=== PATIENT | male | born 1995 ===

== ENCOUNTER 2021-11-11 11:08 | Outpatient (CLI) | payer OTHER ==
[2021-11-11 12:00] VITALS: BP 121/70
--- NOTE | 2021-11-11 12:00 | SLEEP CARE CONSULTATION ---
Information from patient questionnaire entered by Viviana Boogie MA. I have reviewed and concur with the information entered by Viviana Boogie MA. This document represents the service I personally performed and the decisions made by , Susie Banda ARNP. History of Present Illness Service Date and Time: 11/11/2021 1108 Reason for Visit: New patient (ONSET 09/2019, NO PRIORS, ) Chief Complaint: reports: Unrefreshed sleep, Snoring, Excessive daytime sleepin ess, Fatigue Date of Onset: 1 YEAR Usual bedtime: 10 PM Time it takes to fall asleep: 20-30 MINUTES Snores at night: Yes Observed to quit breathing while asleep: No Sleeps alone due to snoring: No Number of times waking at night: 2 Reasons for waking at night: reports: Snoring, Other Toss, Turn, or Twitch while sleeping: Yes Recalls having dreams: No Usually gets out of bed at: 0600 Feels refreshed in the morning: No Morning headache: No Sleepy or fatigued during the day: Yes Ever fallen asleep while driving: No Takes day naps: Yes Dreams during day naps: No Prior sleep studies: No Additional HPI information: I had the pleasure of seeing SUZIE KEMP today regarding the possibility of him having a sleep disorder. His current complaints are unrefreshed sleep, excessive daytime sleepiness, fatigue and snoring. He states he snores loudly and this is keeping his girlfriend awake at night. He is also very tired throughout the day. The patient tells me that he normally goes to bed around 10 pm (weekends, midnight), and it takes him approximately 15 minutes to fall asleep. He has been told that he snores loudly and irregularly at night. He has not been observed to stop breathing in his sleep. His bed partner can still sleep in the same bed. He can recall waking up on the average of 2 times during the night. Most of the time he wakes up because of unknown reason. He has occasionally awakened for his own snoring. There is a lot of tossing and turning in his sleep. Generally there is no recollection of dreams. He usually wakes up at 0600 (weekends, 0900) and does not feel refreshed. He usually does not have a morning headache. During the day he complains of feeling sleepy and fatigued. He has never fallen asleep while driving nor has any accident due to sleepiness. He usually naps for about 1-2 hours once a week. If he naps, upon falling asleep during the day he denies having vivid dreams. There is somniloquy (sleep talking) but no somnambulism (sleep walking). He has never experienced sleep paralysis, cataplexy, or symptoms of restless leg syndrome. He reports having impaired concentration during the day. 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 Patient is Single and lives in . Have you smoked in the past 12 months: No Alcohol use: No Caffeine use: Yes Caffeine amount and frequency: 3-4 X WEEKLY Family History Family history of sleep disordered breathing: Yes Family Hx Sleep Apnea: Father: Snoring Allergies and Home Medications Known drug allergies: No Drug allergies reviewed: Yes (NKDA) Home medication list reviewed: Yes (no daily medications or supplements) Review of Systems Cardiovascular: denies: high blood pressure Gastrointestinal: denies: heartburn Neurological: reports: head trauma (minor concussion 2 yrs ago). denies: headaches Psychiatric: denies: anxiety, depression, mood disorder Ear/Nose/Throat: reports: wisdom teeth removed (two removed). denies: injury to nose, tonsillectomy Endocrine: denies: thyroid disease Immunologic: denies: allergies to food or environment Physical Exam Vital signs obtained and entered by: LILI ROMERO Blood Pressure: 121/70 (RIGHT, RESP 18, PULSE 79, ) Cuff size: wrist Heart Rate: 80 O2 Saturation: 98 (PAPER) Height: 5 ft 7 in Weight: 184 lb (UNIFORM AD BOOTS) Body Mass Index: 28.8 BMI Classification: Overweight Neck circumference: 15.2 (INCHES) Mouth and throat: narrow oropharynx Soft palate: long Hard palate: normal Uvula: normal Uvula visualization: 50% Mallampati Class II Tongue: enlarged in size with teeth womack on lateral edges Tonsils: small Neck: normal w/o lymphadenopathy or thyromegaly Heart: regular rate and rhythm Lungs: clear bilaterally Impression and Plan 1. Suspected Obstructive Sleep Apnea-Hypopnea Syndrome, as suggested by a history of loud and irregular snoring, unrefreshed sleep, cognitive impairment, and excessive daytime sleepiness. Narrow oropharynx and obesity are common predisposing factors for obstructive sleep apnea-hypopnea syndrome. I recommend proceeding to polysomnography to confirm the diagnosis and to assess severity. If the patient has significant sleep disordered breathing, a manual CPAP titration study will also be performed to find the optimal treatment pressure. I informed the patient of what the sleep studies involve and after some discussion, obtained agreement to proceed. The pathophysiology of obstructive sleep apnea-hypopnea syndrome was discussed with the patient and health risks of cardiovascular and cerebrovascular disease if not treated. Risks of drowsy driving discussed in detail and patient advised to avoid long distance driving and to boat puller at the first sign of drowsiness. Patient agreed to plan. * Schedule polysomnography. * Avoid long distance driving or driving when feeling sleepy. * Avoid alcohol, sedative and muscle relaxant around bedtime. * Attempt to lose weight. * Review instructions provided by trained office staff on how to prepare for the sleep study. * Return for follow-up after sleep study completed. Counseling Topics: Weight loss health impact Visit Type: In Office Time Spent with Patient (minutes): 32 Provider Statement: I spent 100% of the Face to Face Visit with the patient with greater than 50% spent counseling the patient and coordination of care.
== END 2021-11-11 11:09 | disposition home or self-care (01) ==
LOC: SC 11:08
PROVIDERS: ATTEND Nurse Practitioner Family
DX: R06.83 Snoring (principal); G47.8 Other sleep disorders; G47.10 Hypersomnia, unspecified; R53.83 Other fatigue; E66.3 Overweight; Z68.28 Body mass index [BMI] 28.0-28.9, adult
CPT/HCPCS: 99203; 99212

== ENCOUNTER 2021-12-05 12:25 | Outpatient (CLI) | payer OTHER | END 2021-12-05 12:26 | disposition home or self-care (01) | LOC: SC 12:25 | PROVIDERS: ATTEND Nurse Practitioner Family | DX: R06.83 Snoring (principal); R00.0 Tachycardia, unspecified; G47.8 Other sleep disorders; G47.10 Hypersomnia, unspecified; R53.83 Other fatigue | CPT/HCPCS: 95806 ==